=== PATIENT | female | born 1945 | race Asian ===

== ENCOUNTER 2021-05-20 19:38 | Inpatient (IN) | payer MEDICARE, OTHER ==
[~2021-05-20] VITALS: Ht 157.5 cm; Wt 70.3 kg
--- NOTE | 2021-05-20 20:00 | NUR ---
Patient BIB [facility] from [facility] to be medically cleared to be eval by PET TEAM for SI. Pt denies any SI at this moment. Noted to be calm and cooperative. Clear speech, complete sentences. Denies any pain/discomfort.
--- NOTE | 2021-05-20 20:02 | NUR ---
Dr. Wan at bedside, MSE in progress.
[2021-05-20] MEDS ORDERED: CLOP75TA15 PO (20:12)
[2021-05-20] MEDS ORDERED: DULO30CA2 PO (20:12)
[2021-05-20] MEDS ORDERED: ATEN25TA PO (20:12)
[2021-05-20] MEDS ORDERED: RAMI10CA32 PO (20:12)
[2021-05-20] MEDS ORDERED: EZET10TA15 PO (20:12)
[2021-05-20] MEDS ORDERED: ASPI81TA31 PO (20:12)
--- NOTE | 2021-05-20 20:12 | NUR ---
Called Davida from crisis. No answer, left message.
--- NOTE | 2021-05-20 20:57 | NUR ---
Davida from crisis at bedside to eval patient.
--- NOTE | 2021-05-20 21:45 | NUR ---
Gave report to Precila U.
[2021-05-20] MEDS ORDERED: DIPH25CA83 PO (21:53)
[2021-05-20] MEDS ORDERED: CARI1.5C PO (21:53)
[2021-05-20] MEDS ORDERED: LANS30CA56 PO (21:53)
[2021-05-20] MEDS ORDERED: ZINC50TA72 PO (21:53)
[2021-05-20] MEDS ORDERED: LORA-259 PO (21:53)
[2021-05-20] MEDS ORDERED: SITA1TAB2 PO (21:53)
--- NOTE | 2021-05-20 22:08 | NUR ---
Pt. admitted to [facility] , under care of and Kary Ortiz. Dx: psychosis, 5150 hold DTS Belongs List completed
[2021-05-20] MEDS ORDERED: MAG HYDROX/AL HYDROX/SIMETH 30 ML LIQUID UDC PO PRN (22:30)
[2021-05-20] MEDS ORDERED: MAGNESIUM HYDROXIDE 30 ML LIQUID UDC PO PRN (22:30)
[2021-05-20] MEDS ORDERED: CLONIDINE HCL 0.1 MG TABLET PO ONE (22:30)
[2021-05-20] MEDS ORDERED: BLOOD SUGAR DIAGNOSTIC 1 EACH STRIP VI ONE (22:30)
[2021-05-20] MEDS: TEMAZEPAM 7.5 MG CAPSULE PO PRN (23:37)
--- NOTE | 2021-05-21 01:55 | NUR ---
Patient is a 76 yr old female admitted to GPS on a 5150 for danger to self after she according to the hold attempted to overdose by taking 19 tabs of 25mg benadryl. Patient was taken to [facility] then transported to [facility] under the care of Dr. Montanez and Kary Ortiz, ONIEL. Upon admission patient alert, and oriented to place, time, and situation. Patient denied suicidal ideation or intent. Patient appeared to minimize insight about current condition by stating she was unsatisfied with her daughter's current lifestyle. Responses were kept short, and brief while conducting the admitting interview. Patient has a history of hypertension and diabetes mellitus. Blood pressure on admission 190/80 clonidine 0.1mg administered as ordered times one, with effective outcome otherwise vital signs stable. Plan of care initiated, medication reconciliation completed. Will continue to monitor vital signs and Q. 15 mins times 24 hours for safety. Addendum: 05/21/21 at 0215 by WALT BARR RN List of belongings done and secured. Patient received the handbook. Oriented to the unit. Patient also had gomez which was given to supervisor pastry to place in safe.
[2021-05-21] MEDS: PANTOPRAZOLE SODIUM 40 MG TABLET.DR PO SCH (06:59)
[2021-05-21 07:30] VITALS: BP 131/78
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
[2021-05-21 08:12] LABS: BILIRUBIN,TOTAL 0.3 mg/dL (0.2-1.0); CREATININE 1.1 mg/dL (0.6-1.3); POTASSIUM 4.4 mmol/L (3.5-5.1); TOTAL PROTEIN, SERUM 8.2 g/dL (6.4-8.2)
--- NOTE | 2021-05-21 08:31 | NUR ---
Social Work Note/Substance Abuse Intervention: Patient was provided with a brief substance abuse intervention and referred to [facility] ([phone]), [facility] ([phone]), and [facility] ([phone]) for overdose.
[2021-05-21] MEDS: LINAGLIPTIN 5 MG TABLET PO SCH (08:36)
[2021-05-21] MEDS: RAMIPRIL 5 MG CAPSULE PO SCH (08:37)
[2021-05-21] MEDS: CLOPIDOGREL 75 MG TABLET PO SCH (08:37)
[2021-05-21] MEDS: METFORMIN HCL 500 MG TABLET PO SCH ×2 (08:37→17:11)
[2021-05-21] MEDS: EZETIMIBE 10 MG TABLET PO SCH (08:37)
[2021-05-21] MEDS: ASPIRIN 81 MG TAB.CHEW PO SCH (08:37)
[2021-05-21] MEDS: ATENOLOL 25 MG TABLET PO SCH (08:38)
--- NOTE | 2021-05-21 09:39 | NUR ---
GURDEEP Initial Discharge Plan: Patient lives at [address] [place] [address] [place] [address]; ([phone]). Patient would want to return back home upon discharge, she expressed that she lives with a friend. This SW contact patient's daughter Nicholas at ([phone]) and left a detailed voicemail to discuss treatment and discharge plan. GURDEEP will work with the MD and treatment team to coordinate properly.
--- NOTE | 2021-05-21 09:40 | NUR ---
SW Family Contact: This SW contact patient's daughter Del at ([phone]) and left a detailed voicemail to discuss treatment and discharge plan.
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
[2021-05-21] MEDS: ACETAMINOPHEN 325 MG TABLET PO PRN ×2 (13:00→21:01)
--- NOTE | 2021-05-21 14:58 | NUR ---
SW Family Contact: This SW spoke with patient's daughter Nicholas ([phone]) who stated that patient has been unmanageable and has been pushing family away. Daughter expressed that patient doesn't take her medications at home. She shared that patient lives in a guest house located at [address] [place] [address]. Daughter expressed that prior to pt living in the guest house that she rents, she was at [facility]. Daughter expressed if the pt wants to return back to her guest house that she rents she can. SW discussed treatment and discharge plan.
[2021-05-21 16:00] VITALS: BP 121/62
[2021-05-21] MEDS: DULOXETINE 30 MG CAPSULE.DR PO SCH (17:11)
[2021-05-21 20:00] VITALS: BP 150/74
[2021-05-21] MEDS: ARIPIPRAZOLE 5 MG TABLET PO SCH (20:03)
[2021-05-21] MEDS: TEMAZEPAM 7.5 MG CAPSULE PO PRN (21:01)
[2021-05-22] MEDS: PANTOPRAZOLE SODIUM 40 MG TABLET.DR PO SCH (07:00)
[2021-05-22 07:30] VITALS: BP 129/46
[2021-05-22] MEDS: ASPIRIN 81 MG TAB.CHEW PO SCH (11:02)
[2021-05-22] MEDS: CLOPIDOGREL 75 MG TABLET PO SCH (11:02)
[2021-05-22] MEDS: EZETIMIBE 10 MG TABLET PO SCH (11:02)
[2021-05-22] MEDS: METFORMIN HCL 500 MG TABLET PO SCH ×2 (11:02→18:15)
[2021-05-22] MEDS: LINAGLIPTIN 5 MG TABLET PO SCH (11:02)
[2021-05-22] MEDS: RAMIPRIL 5 MG CAPSULE PO SCH (11:04)
[2021-05-22] MEDS: ATENOLOL 25 MG TABLET PO SCH (11:05)
--- NOTE | 2021-05-22 14:52 | NUR ---
GURDEEP Individual Note: SW spoke with patient and discussed discharge plan. Patient stated she does not want to go to a SNF and would like to return home upon discharge.
--- NOTE | 2021-05-22 14:53 | NUR ---
SW Family Contact: This SW spoke with patient's daughter Nicholas ([phone]) who called regarding how her mom is doing currently in the hospital. SW discussed patient's current condition and informed her that patient refused SNF placement and would like to return home.
[2021-05-22 16:57] VITALS: BP 125/52
[2021-05-22] MEDS: DULOXETINE 30 MG CAPSULE.DR PO SCH (18:15)
[2021-05-22 20:12] VITALS: BP 128/42
[2021-05-22] MEDS: ARIPIPRAZOLE 5 MG TABLET PO SCH (20:28)
[2021-05-22] MEDS: TEMAZEPAM 7.5 MG CAPSULE PO PRN (20:32)
[2021-05-22] MEDS: ACETAMINOPHEN 325 MG TABLET PO PRN (20:33)
[2021-05-22] MEDS ORDERED: DEXTROSE 50% 50 ML DISP.SYRIN IV PRN (22:15)
[2021-05-23] MEDS: LORAZEPAM 0.5 MG TABLET PO PRN (01:02)
[2021-05-23] MEDS: BLOOD SUGAR DIAGNOSTIC 1 EACH STRIP VI SCH ×4 (06:08→21:11)
[2021-05-23] MEDS: PANTOPRAZOLE SODIUM 40 MG TABLET.DR PO SCH (06:39)
[2021-05-23 07:41] VITALS: BP 111/53
[2021-05-23] MEDS: CLOPIDOGREL 75 MG TABLET PO SCH (08:16)
[2021-05-23] MEDS: EZETIMIBE 10 MG TABLET PO SCH (08:16)
[2021-05-23] MEDS: ASPIRIN 81 MG TAB.CHEW PO SCH (08:16)
[2021-05-23] MEDS: RAMIPRIL 5 MG CAPSULE PO SCH (08:16)
[2021-05-23] MEDS: METFORMIN HCL 500 MG TABLET PO SCH ×2 (08:16→16:18)
[2021-05-23] MEDS: LINAGLIPTIN 5 MG TABLET PO SCH (08:16)
[2021-05-23] MEDS: ATENOLOL 25 MG TABLET PO SCH (08:16)
[2021-05-23] MEDS: INSULIN REGULAR, HUMAN 300 UNIT/3 ML VIAL SQ PRN ×4 (08:18→21:12)
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
[2021-05-23 16:02] VITALS: BP 130/44
[2021-05-23] MEDS: DULOXETINE 30 MG CAPSULE.DR PO SCH (16:18)
[2021-05-23 19:54] VITALS: BP 111/69
[2021-05-23] MEDS: ARIPIPRAZOLE 5 MG TABLET PO SCH (20:01)
[2021-05-23] MEDS: ATORVASTATIN 40 MG TABLET PO SCH (20:01)
[2021-05-23] MEDS: TEMAZEPAM 7.5 MG CAPSULE PO PRN (21:05)
[2021-05-23] MEDS: ACETAMINOPHEN 325 MG TABLET PO PRN (21:05)
[2021-05-24] MEDS: BLOOD SUGAR DIAGNOSTIC 1 EACH STRIP VI SCH ×5 (06:23→20:46)
[2021-05-24] MEDS: CLOPIDOGREL 75 MG TABLET PO SCH (08:10)
[2021-05-24] MEDS: METFORMIN HCL 500 MG TABLET PO SCH ×2 (08:10→17:16)
[2021-05-24] MEDS: LINAGLIPTIN 5 MG TABLET PO SCH (08:10)
[2021-05-24] MEDS: EZETIMIBE 10 MG TABLET PO SCH (08:10)
[2021-05-24] MEDS: PANTOPRAZOLE SODIUM 40 MG TABLET.DR PO SCH (08:10)
[2021-05-24] MEDS: ASPIRIN 81 MG TAB.CHEW PO SCH (08:10)
[2021-05-24] MEDS: RAMIPRIL 5 MG CAPSULE PO SCH (08:11)
[2021-05-24] MEDS: ATENOLOL 25 MG TABLET PO SCH (08:11)
[2021-05-24] MEDS: INSULIN REGULAR, HUMAN 300 UNIT/3 ML VIAL SQ PRN ×4 (08:12→20:50)
[2021-05-24 08:13] VITALS: BP 132/62
--- NOTE | 2021-05-24 12:58 | NUR ---
Pt.was seen by MICHELLE GARDUNO MD
[2021-05-24 16:44] VITALS: BP 126/51
[2021-05-24] MEDS: DULOXETINE 30 MG CAPSULE.DR PO SCH (17:16)
--- NOTE | 2021-05-24 17:50 | NUR ---
PT. EATING DINNER.NO S/S OF DISTRESS,DENIES ANY PAIN,IN GOOD MOOD.
[2021-05-24 19:57] VITALS: BP 118/53
[2021-05-24] MEDS: ARIPIPRAZOLE 5 MG TABLET PO SCH (20:45)
[2021-05-24] MEDS: ATORVASTATIN 40 MG TABLET PO SCH (20:45)
[2021-05-24] MEDS: TEMAZEPAM 7.5 MG CAPSULE PO PRN (20:54)
[2021-05-25] MEDS: LORAZEPAM 0.5 MG TABLET PO PRN (00:51)
[2021-05-25] MEDS: BLOOD SUGAR DIAGNOSTIC 1 EACH STRIP VI SCH ×4 (06:19→21:42)
[2021-05-25] MEDS: PANTOPRAZOLE SODIUM 40 MG TABLET.DR PO SCH (06:19)
[2021-05-25 07:30] VITALS: BP 140/54
[2021-05-25 07:50] LABS: HEMATOCRIT 36.7 % (31.2-41.9); MEAN CORPUSCULAR HEMOGLOBIN 28.2 uug (24.7-32.8); MEAN CORPUSCULAR VOLUME 88.2 fL (75.5-95.3); PLATELET COUNT (AUTO) 310 K/uL (179-408)
[2021-05-25 08:10] LABS: BILIRUBIN,TOTAL 0.3 mg/dL (0.2-1.0); CREATININE 1.1 mg/dL (0.6-1.3); POTASSIUM 3.7 mmol/L (3.5-5.1); TOTAL PROTEIN, SERUM 7.3 g/dL (6.4-8.2)
[2021-05-25] MEDS: LINAGLIPTIN 5 MG TABLET PO SCH (08:35)
[2021-05-25] MEDS: METFORMIN HCL 500 MG TABLET PO SCH ×2 (08:35→17:15)
[2021-05-25] MEDS: ASPIRIN 81 MG TAB.CHEW PO SCH (08:35)
[2021-05-25] MEDS: CLOPIDOGREL 75 MG TABLET PO SCH (08:36)
[2021-05-25] MEDS: EZETIMIBE 10 MG TABLET PO SCH (08:38)
--- NOTE | 2021-05-25 09:09 | NUR ---
SW Note: This SW contacted [facility]'s department requesting to speak to deputy Redmond ([phone]) and this SW spoke with officer Dougie who stated is on the field and will contact this SW. Dougie stated either deputy Redmond or Jean Pierre will contact this SW.
[2021-05-25] MEDS: ATENOLOL 25 MG TABLET PO SCH (09:52)
[2021-05-25] MEDS: RAMIPRIL 5 MG CAPSULE PO SCH (09:53)
--- NOTE | 2021-05-25 11:22 | NUR ---
SW SNF Referral: This SW sent clinicals to [facility] for placement option.
[2021-05-25] MEDS: INSULIN REGULAR, HUMAN 300 UNIT/3 ML VIAL SQ PRN ×3 (11:35→21:43)
--- NOTE | 2021-05-25 12:20 | NUR ---
SNF Contact: This SW received a call from Wagner guzman from [facility] who stated pt is accepted.
[2021-05-25 15:23] VITALS: BP 140/51
[2021-05-25] MEDS: DULOXETINE 30 MG CAPSULE.DR PO SCH (17:15)
[2021-05-25] MEDS: ARIPIPRAZOLE 5 MG TABLET PO SCH (17:15)
[2021-05-25 20:01] VITALS: BP 162/70
[2021-05-25] MEDS: ATORVASTATIN 40 MG TABLET PO SCH (21:41)
[2021-05-25] MEDS: TEMAZEPAM 7.5 MG CAPSULE PO PRN (21:41)
[2021-05-26] MEDS: BLOOD SUGAR DIAGNOSTIC 1 EACH STRIP VI SCH ×4 (06:22→20:21)
[2021-05-26] MEDS: PANTOPRAZOLE SODIUM 40 MG TABLET.DR PO SCH (06:22)
[2021-05-26 07:30] VITALS: BP 117/46
[2021-05-26] MEDS: ASPIRIN 81 MG TAB.CHEW PO SCH (08:30)
[2021-05-26] MEDS: ARIPIPRAZOLE 5 MG TABLET PO SCH ×2 (08:31→17:02)
[2021-05-26] MEDS: LINAGLIPTIN 5 MG TABLET PO SCH (08:32)
[2021-05-26] MEDS: CLOPIDOGREL 75 MG TABLET PO SCH (08:32)
[2021-05-26] MEDS: RAMIPRIL 5 MG CAPSULE PO SCH (08:32)
[2021-05-26] MEDS: ATENOLOL 25 MG TABLET PO SCH (08:33)
[2021-05-26] MEDS: METFORMIN HCL 500 MG TABLET PO SCH ×2 (08:34→17:02)
[2021-05-26] MEDS: EZETIMIBE 10 MG TABLET PO SCH (08:36)
--- NOTE | 2021-05-26 09:21 | NUR ---
SW Family Contact: This SW spoke with patient's daughter Nicholas ([phone]) who called regarding updated discharge plan. She stated that the Patrica visited the home.
[2021-05-26] MEDS: INSULIN REGULAR, HUMAN 300 UNIT/3 ML VIAL SQ PRN ×2 (11:24→20:40)
--- NOTE | 2021-05-26 11:32 | NUR ---
GURDEEP PC Hearing: Patient had 5250 probable cause hearing today and it was upheld for grave disability.
[2021-05-26] MEDS ORDERED: LOPERAMIDE HCL 2 MG CAPSULE PO PRN (15:00)
[2021-05-26 15:30] VITALS: BP 101/68
[2021-05-26] MEDS: DULOXETINE 30 MG CAPSULE.DR PO SCH (17:02)
[2021-05-26] MEDS: ATORVASTATIN 40 MG TABLET PO SCH (20:11)
[2021-05-26 20:13] VITALS: BP 124/58
[2021-05-26] MEDS: TEMAZEPAM 7.5 MG CAPSULE PO PRN (20:40)
[2021-05-26] MEDS: ACETAMINOPHEN 325 MG TABLET PO PRN (20:40)
--- NOTE | 2021-05-26 23:16 | NUR ---
PATIENT RECEIVED IN ROOM AWAKE. ALERT/ORIENTED X3. PATIENT IS,CALM, COOPERATIVE AND PLEASANT UPON APPROACH.SELF CARE,BRP AND AMBULATORY.COMPLIANT WITH MEDS AND CARE.PRN MEDICATION WAS GIVEN FOR SLEEP WAS GIVEN. PATIENT DENIES PAIN/SI/HI. NO ACUTE DISTRESS NOTED. SAFE ENVIRONMENT PROVIDED, FREQUENT ROUNDING, CLUTTER FREE ENVIRONMENT. BED IN LOWEST POSITION, BED LOCKED AND BED ALARM WHILE IN BED.
[2021-05-27] MEDS: PANTOPRAZOLE SODIUM 40 MG TABLET.DR PO SCH (06:36)
[2021-05-27] MEDS: BLOOD SUGAR DIAGNOSTIC 1 EACH STRIP VI SCH ×4 (06:40→20:27)
[2021-05-27 07:30] VITALS: BP 131/46
[2021-05-27] MEDS: ASPIRIN 81 MG TAB.CHEW PO SCH (08:29)
[2021-05-27] MEDS: EZETIMIBE 10 MG TABLET PO SCH (08:30)
[2021-05-27] MEDS: LINAGLIPTIN 5 MG TABLET PO SCH (08:30)
[2021-05-27] MEDS: CLOPIDOGREL 75 MG TABLET PO SCH (08:30)
[2021-05-27] MEDS: METFORMIN HCL 500 MG TABLET PO SCH ×2 (08:30→16:50)
[2021-05-27] MEDS: ARIPIPRAZOLE 5 MG TABLET PO SCH ×2 (08:30→16:50)
[2021-05-27] MEDS: ATENOLOL 25 MG TABLET PO SCH (08:32)
[2021-05-27] MEDS: RAMIPRIL 5 MG CAPSULE PO SCH (08:32)
[2021-05-27] MEDS: INSULIN REGULAR, HUMAN 300 UNIT/3 ML VIAL SQ PRN ×2 (12:07→16:57)
--- NOTE | 2021-05-27 13:19 | NUR ---
SW Individual Therapy: caseworker intake met with patient for brief counseling and assessed for patient's presenting problem depressed mood. Patient appears to be sad and tearful while this SW was conducting therapy. Patient expressed that she is "alone" and that she has no family. She expressed that she does not have a good relationship with her daughter. SW actively listened and provided emotional support.
[2021-05-27 16:00] VITALS: BP 137/54
[2021-05-27] MEDS: DULOXETINE 30 MG CAPSULE.DR PO SCH (16:50)
[2021-05-27] MEDS: ATORVASTATIN 40 MG TABLET PO SCH (20:08)
[2021-05-27 20:15] VITALS: BP 138/61
[2021-05-27] MEDS: TEMAZEPAM 7.5 MG CAPSULE PO PRN (20:41)
[2021-05-27] MEDS: ACETAMINOPHEN 325 MG TABLET PO PRN (20:41)
[2021-05-28] MEDS: PANTOPRAZOLE SODIUM 40 MG TABLET.DR PO SCH (06:15)
[2021-05-28] MEDS: BLOOD SUGAR DIAGNOSTIC 1 EACH STRIP VI SCH ×4 (06:19→20:10)
[2021-05-28 07:30] VITALS: BP 138/44
[2021-05-28] MEDS: INSULIN REGULAR, HUMAN 300 UNIT/3 ML VIAL SQ PRN ×2 (08:10→12:07)
[2021-05-28] MEDS: CLOPIDOGREL 75 MG TABLET PO SCH (08:43)
[2021-05-28] MEDS: ARIPIPRAZOLE 5 MG TABLET PO SCH ×2 (08:43→16:47)
[2021-05-28] MEDS: LINAGLIPTIN 5 MG TABLET PO SCH (08:44)
[2021-05-28] MEDS: METFORMIN HCL 500 MG TABLET PO SCH ×2 (08:44→16:48)
[2021-05-28] MEDS: RAMIPRIL 5 MG CAPSULE PO SCH (08:45)
[2021-05-28] MEDS: ASPIRIN 81 MG TAB.CHEW PO SCH (08:45)
[2021-05-28] MEDS: EZETIMIBE 10 MG TABLET PO SCH (08:46)
[2021-05-28] MEDS: ATENOLOL 25 MG TABLET PO SCH (08:46)
--- NOTE | 2021-05-28 11:41 | NUR ---
SW Family Contact: This SW spoke with patient's daughter Nicholas ([phone]) and stated pt is accepted at [facility] and daughter was agreeable of pt going here. Daughter informed this SW that she is taking care of pt's rent at the guest house.
[2021-05-28 15:56] VITALS: BP 128/62
[2021-05-28] MEDS: DULOXETINE 30 MG CAPSULE.DR PO SCH (16:47)
--- NOTE | 2021-05-28 18:12 | NUR ---
Gps/Ski Edge Painter- Had been cooperative with staff providing her care, had been in and out of her group activity , denies pain or any discomfort. Patient requesting sleeping medications be admnistered earlier that usual, informed patient sleeping medications are given at bedsitime , not at dinner time.
[2021-05-28 20:00] VITALS: BP 138/61
[2021-05-28] MEDS: ATORVASTATIN 40 MG TABLET PO SCH (20:04)
[2021-05-28] MEDS: ACETAMINOPHEN 325 MG TABLET PO PRN (20:05)
[2021-05-28] MEDS: TEMAZEPAM 7.5 MG CAPSULE PO PRN (20:05)
[2021-05-29] MEDS: PANTOPRAZOLE SODIUM 40 MG TABLET.DR PO SCH (06:23)
[2021-05-29] MEDS: BLOOD SUGAR DIAGNOSTIC 1 EACH STRIP VI SCH ×4 (06:27→20:35)
[2021-05-29 07:30] VITALS: BP 127/49
[2021-05-29] MEDS: LINAGLIPTIN 5 MG TABLET PO SCH (08:54)
[2021-05-29] MEDS: EZETIMIBE 10 MG TABLET PO SCH (08:54)
[2021-05-29] MEDS: METFORMIN HCL 500 MG TABLET PO SCH ×2 (08:54→17:00)
[2021-05-29] MEDS: CLOPIDOGREL 75 MG TABLET PO SCH (08:54)
[2021-05-29] MEDS: ASPIRIN 81 MG TAB.CHEW PO SCH (08:54)
[2021-05-29] MEDS: ATENOLOL 25 MG TABLET PO SCH (08:55)
[2021-05-29] MEDS: RAMIPRIL 5 MG CAPSULE PO SCH (08:55)
[2021-05-29] MEDS: ARIPIPRAZOLE 5 MG TABLET PO SCH ×2 (09:00→17:00)
[2021-05-29] MEDS: INSULIN REGULAR, HUMAN 300 UNIT/3 ML VIAL SQ PRN ×3 (11:56→20:36)
[2021-05-29] MEDS: DULOXETINE 30 MG CAPSULE.DR PO SCH (17:00)
[2021-05-29 17:16] VITALS: BP 127/56
[2021-05-29 19:59] VITALS: BP 139/63
[2021-05-29] MEDS: ATORVASTATIN 40 MG TABLET PO SCH (20:06)
[2021-05-29] MEDS: TEMAZEPAM 7.5 MG CAPSULE PO PRN (21:10)
[2021-05-29] MEDS: ACETAMINOPHEN 325 MG TABLET PO PRN (21:15)
--- NOTE | 2021-05-29 21:18 | NUR ---
GPS: PATIENT C/O GEN: PAIN. TYLENOL 650 MG PO GIVEN.
[2021-05-30] MEDS: BLOOD SUGAR DIAGNOSTIC 1 EACH STRIP VI SCH ×4 (06:10→20:35)
[2021-05-30] MEDS: PANTOPRAZOLE SODIUM 40 MG TABLET.DR PO SCH (06:18)
--- NOTE | 2021-05-30 06:35 | NUR ---
Gps: Remain calm and cooperative. took restoril 7.5 mg po for sleep. and tylnol 650 mg po for gen: pain both meds effective. Denies pain or any discomfort at this time. compliant with am meds and blood sugar check. slept 7.30 hrs through the night.
[2021-05-30 07:47] VITALS: BP 115/57
[2021-05-30] MEDS: EZETIMIBE 10 MG TABLET PO SCH (08:31)
[2021-05-30] MEDS: ASPIRIN 81 MG TAB.CHEW PO SCH (08:31)
[2021-05-30] MEDS: ARIPIPRAZOLE 5 MG TABLET PO SCH ×2 (08:32→16:44)
[2021-05-30] MEDS: METFORMIN HCL 500 MG TABLET PO SCH ×2 (08:32→16:44)
[2021-05-30] MEDS: LINAGLIPTIN 5 MG TABLET PO SCH (08:32)
[2021-05-30] MEDS: CLOPIDOGREL 75 MG TABLET PO SCH (08:32)
[2021-05-30] MEDS: ATENOLOL 25 MG TABLET PO SCH (08:33)
[2021-05-30] MEDS: RAMIPRIL 5 MG CAPSULE PO SCH (08:33)
[2021-05-30] MEDS: INSULIN REGULAR, HUMAN 300 UNIT/3 ML VIAL SQ PRN ×2 (08:37→11:55)
[2021-05-30] MEDS: DULOXETINE 30 MG CAPSULE.DR PO SCH (16:44)
[2021-05-30 16:57] VITALS: BP 111/59
[2021-05-30 19:56] VITALS: BP 124/66
[2021-05-30] MEDS: TEMAZEPAM 7.5 MG CAPSULE PO PRN (20:30)
[2021-05-30] MEDS: ATORVASTATIN 40 MG TABLET PO SCH (20:30)
[2021-05-30] MEDS: ACETAMINOPHEN 325 MG TABLET PO PRN (20:35)
[2021-05-31] MEDS: PANTOPRAZOLE SODIUM 40 MG TABLET.DR PO SCH (06:16)
[2021-05-31] MEDS: BLOOD SUGAR DIAGNOSTIC 1 EACH STRIP VI SCH ×4 (06:31→20:37)
[2021-05-31 08:14] VITALS: BP 119/54
[2021-05-31] MEDS: METFORMIN HCL 500 MG TABLET PO SCH ×2 (08:34→16:36)
[2021-05-31] MEDS: ATENOLOL 25 MG TABLET PO SCH (08:34)
[2021-05-31] MEDS: ASPIRIN 81 MG TAB.CHEW PO SCH (08:34)
[2021-05-31] MEDS: RAMIPRIL 5 MG CAPSULE PO SCH (08:34)
[2021-05-31] MEDS: ARIPIPRAZOLE 5 MG TABLET PO SCH ×2 (08:34→16:36)
[2021-05-31] MEDS: CLOPIDOGREL 75 MG TABLET PO SCH (08:35)
[2021-05-31] MEDS: EZETIMIBE 10 MG TABLET PO SCH (08:35)
[2021-05-31] MEDS: LINAGLIPTIN 5 MG TABLET PO SCH (08:35)
[2021-05-31] MEDS: INSULIN REGULAR, HUMAN 300 UNIT/3 ML VIAL SQ PRN (12:02)
[2021-05-31 16:18] VITALS: BP 144/56
[2021-05-31] MEDS: DULOXETINE 30 MG CAPSULE.DR PO SCH (16:36)
[2021-05-31 19:48] VITALS: BP 158/72
[2021-05-31] MEDS: ATORVASTATIN 40 MG TABLET PO SCH (20:28)
[2021-05-31] MEDS: ACETAMINOPHEN 325 MG TABLET PO PRN (20:38)
[2021-05-31] MEDS: TEMAZEPAM 7.5 MG CAPSULE PO PRN (21:23)
[2021-06-01] MEDS: PANTOPRAZOLE SODIUM 40 MG TABLET.DR PO SCH (06:03)
--- NOTE | 2021-06-01 06:26 | NUR ---
Received Pt pacing the hallways, Pt is quiet, guarded, and appears internally preoccupied. Pt is A+O x3 with poor insight into her situation. Pt gives minimal disclosure, and states that she is "fine". Pt minimizes the overdose on medications that brought her to the hospital stating, "I just took a couple extra pills to help me sleep". Pt denies any current or past suicidal thoughts, ideations, or plans and verbally contracts for safety. VS stable, c/o generalized body pain due to arthritis. Tylenol 650mg administered with good effect.
[2021-06-01] MEDS: BLOOD SUGAR DIAGNOSTIC 1 EACH STRIP VI SCH ×4 (06:44→20:14)
[2021-06-01 07:30] VITALS: BP 132/68
[2021-06-01] MEDS: ARIPIPRAZOLE 5 MG TABLET PO SCH ×2 (08:33→16:43)
[2021-06-01] MEDS: RAMIPRIL 5 MG CAPSULE PO SCH (08:34)
[2021-06-01] MEDS: ASPIRIN 81 MG TAB.CHEW PO SCH (08:34)
[2021-06-01] MEDS: EZETIMIBE 10 MG TABLET PO SCH (08:34)
[2021-06-01] MEDS: CLOPIDOGREL 75 MG TABLET PO SCH (08:34)
[2021-06-01] MEDS: METFORMIN HCL 500 MG TABLET PO SCH ×2 (08:34→16:43)
[2021-06-01] MEDS: LINAGLIPTIN 5 MG TABLET PO SCH (08:34)
[2021-06-01] MEDS: ATENOLOL 25 MG TABLET PO SCH (08:39)
[2021-06-01] MEDS: INSULIN REGULAR, HUMAN 300 UNIT/3 ML VIAL SQ PRN (11:46)
[2021-06-01 15:16] VITALS: BP 153/51
[2021-06-01] MEDS: DULOXETINE 30 MG CAPSULE.DR PO SCH (16:43)
[2021-06-01 19:59] VITALS: BP 155/75
[2021-06-01] MEDS: TEMAZEPAM 7.5 MG CAPSULE PO PRN (20:08)
[2021-06-01] MEDS: ACETAMINOPHEN 325 MG TABLET PO PRN (20:08)
[2021-06-01] MEDS: ATORVASTATIN 40 MG TABLET PO SCH (20:08)
[2021-06-02] MEDS: BLOOD SUGAR DIAGNOSTIC 1 EACH STRIP VI SCH ×4 (06:53→20:19)
[2021-06-02] MEDS: PANTOPRAZOLE SODIUM 40 MG TABLET.DR PO SCH (06:53)
[2021-06-02 07:30] VITALS: BP 144/56
[2021-06-02] MEDS: ARIPIPRAZOLE 5 MG TABLET PO SCH ×2 (08:41→16:34)
[2021-06-02] MEDS: CLOPIDOGREL 75 MG TABLET PO SCH (08:42)
[2021-06-02] MEDS: ASPIRIN 81 MG TAB.CHEW PO SCH (08:42)
[2021-06-02] MEDS: EZETIMIBE 10 MG TABLET PO SCH (08:42)
[2021-06-02] MEDS: LINAGLIPTIN 5 MG TABLET PO SCH (08:43)
[2021-06-02] MEDS: RAMIPRIL 5 MG CAPSULE PO SCH (08:43)
[2021-06-02] MEDS: METFORMIN HCL 500 MG TABLET PO SCH ×2 (08:43→16:34)
[2021-06-02] MEDS: ATENOLOL 25 MG TABLET PO SCH (08:43)
--- NOTE | 2021-06-02 14:58 | NUR ---
SW Note: SW spoke with pt in regards to pt's placement and that she is accepted at [facility]. Pt expressed that she has been here before and is willing to go here.
[2021-06-02 15:25] VITALS: BP 123/59
[2021-06-02] MEDS: INSULIN REGULAR, HUMAN 300 UNIT/3 ML VIAL SQ PRN (16:33)
[2021-06-02] MEDS: DULOXETINE 30 MG CAPSULE.DR PO SCH (16:34)
[2021-06-02 20:00] VITALS: BP 141/75
--- NOTE | 2021-06-02 20:00 | NUR ---
RECEIVED PATIENT IN THE HALLWAY. SHE IS NOTED A/O X 3 ABLE TO AMBULATE WITH STEADY GAIT AND ABLE TO MAKE HER NEEDS KNOWN. SHE IS NOTED WITH LOW MOOD, AFFECT IS BLUNTED, SHE IS NOTED PREOCCUPIED. UPON INTERVIEW, SHE STATED THAT SHE IS NOT HAPPY WITH HER INCOM[facility]. SHE WOULD LIKE TO GO BACK HOME. PATIENT WAS REASSURED, AND REDIRECTED. SHE DENIED SI/HI/VA/AH. SHE IS ABLE TO VERBALLY CFS. V/S STABLE AT THIS TIME. SHE WAS GIVEN PO FLUIDS AND SNACKS. SHE IS REASSURED FOR HER SAFETY. SAFETY AND FALL PRECAUTION IN PLACE. WILL CONTINUE TO MONITOR.
[2021-06-02] MEDS: ATORVASTATIN 40 MG TABLET PO SCH (20:19)
[2021-06-02] MEDS: ACETAMINOPHEN 325 MG TABLET PO PRN (21:59)
[2021-06-02] MEDS: TEMAZEPAM 7.5 MG CAPSULE PO PRN (22:00)
[2021-06-03] MEDS: PANTOPRAZOLE SODIUM 40 MG TABLET.DR PO SCH (07:22)
[2021-06-03] MEDS: BLOOD SUGAR DIAGNOSTIC 1 EACH STRIP VI SCH ×4 (07:23→20:38)
[2021-06-03 07:30] VITALS: BP 168/69
--- NOTE | 2021-06-03 07:30 | NUR ---
Received report from ELIESER Simpson. All questions, comments, and concerns were addressed. Received patient awake resting quietly in her assigned bed. Bed is in low and locked position.
--- NOTE | 2021-06-03 08:03 | NUR ---
GURDEEP DISCHARGE NOTE: Patient will be discharged to [facility] [address] [facility], [place] [address] ([phone]) via ambulance at 1PM. Spoke with Alis, Admin Coordinator at the facility who states they are ready to accept the patient today. Patient is aware and agreeable with discharge plans. Patients daughter Nicholas ([phone]) is aware and agreeable. Patient is alert and oriented x3, is unable to plan for self-care at this time, however, is willing to accept care at [facility]. Patient denies any suicidal or homicidal ideation. Patient will follow-up at the facility with Dr. Montanez (psychiatrist) and (Autism Teacher) Dr. Jose Juan Moreau. Patient presents with euthymic mood and congruent affect. Addendum: 06/04/21 at 0756 by GURDEEP GOVEA Discharge changed for 06/04 due to patient's BP high on 06/03. Per nurses, transportation is scheduled for 8AM on 06/04.
[2021-06-03] MEDS: ASPIRIN 81 MG TAB.CHEW PO SCH (08:51)
[2021-06-03] MEDS: INSULIN REGULAR, HUMAN 300 UNIT/3 ML VIAL SQ PRN ×3 (08:51→16:39)
[2021-06-03] MEDS: LINAGLIPTIN 5 MG TABLET PO SCH (08:52)
[2021-06-03] MEDS: CLOPIDOGREL 75 MG TABLET PO SCH (08:52)
[2021-06-03] MEDS: EZETIMIBE 10 MG TABLET PO SCH (08:52)
[2021-06-03] MEDS: METFORMIN HCL 500 MG TABLET PO SCH ×2 (08:52→16:40)
[2021-06-03] MEDS: RAMIPRIL 5 MG CAPSULE PO SCH (08:52)
[2021-06-03] MEDS: ARIPIPRAZOLE 5 MG TABLET PO SCH ×3 (08:52→16:40)
[2021-06-03] MEDS: ATENOLOL 25 MG TABLET PO SCH (08:56)
--- NOTE | 2021-06-03 10:58 | NUR ---
GURDEEP Family Contact: GURDEEP Rios and GURDEEP Valdes spoke with patient's daughter Nicholas ([phone]) who called regarding patient's discharge plan. Nicholas was shouting, rambling and accusatory of her not known what is going on. Keisha and Blanca have both been in constant communication with Nicholas throughout the patient's hospitalization. Nicholas has known and requested about the patient going to [facility]. Nicholas stated she did not know about the [facility]'s being involved in the patient's case when in fact Nicholas has contacted Blanca MACKENZIE on 05/26/21 informing of José Miguel's visit. Nicholas was twisting words around and accusatory of staff not helping her. Keisha explained the process of the patient's discharge plan again and Nicholas continue to state she does not know anything. ELIESER Crain was present in the room during this phone conversation. Nicholas stated she is the DPOA however now she states that she is unsure if its still active, she has failed to provide the documentation. GURDEEP Rios informed Nicholas that she can be in contact and communication with [facility] once patient admits there today. Nicholas demanding a phone call from the psychiatrist because "she does not know what is going on". GURDEEP informed Dr. Montanez of this request and situation.
--- NOTE | 2021-06-03 15:56 | NUR ---
At time of pickup to be discharged, patient's BP 196/79, pulse 69. Patient denies s/s of hypertension. she states she "feels fine". Patient unable to be discharged at this time. Left message at [employer] for Dr. Lopez. Waiting call back. Addendum: 06/03/21 at 1730 by MIYA FLORES RN Orders received for Hydralazine 25 mg PO once.
[2021-06-03 16:14] VITALS: BP 196/79
[2021-06-03] MEDS: DULOXETINE 30 MG CAPSULE.DR PO SCH (16:40)
[2021-06-03] MEDS ORDERED: hydrALAZINE HCL 25 MG TABLET PO ONE (17:00)
[2021-06-03] MEDS: ATORVASTATIN 40 MG TABLET PO SCH (20:29)
[2021-06-03] MEDS: CLONIDINE HCL 0.1 MG TABLET PO ONE ×2 (20:37→20:58)
--- NOTE | 2021-06-03 21:12 | NUR ---
[facility] halfway facility can not accept the patient at this time due to patient arriving late. Spoke to Kb from [facility]; changed transportation time to 8 am on 06/04/2021. Called patients daughter and left a voicemail. aware.
[2021-06-03] MEDS: ACETAMINOPHEN 325 MG TABLET PO PRN (21:17)
[2021-06-03] MEDS: TEMAZEPAM 7.5 MG CAPSULE PO PRN (21:18)
[2021-06-03 23:14] VITALS: BP 111/53
--- NOTE | 2021-06-04 06:12 | NUR ---
Patient slept 8 hours. Patient has been med compliant. Pleasant upon approach, semi fair insight and semi fair judgement.
[2021-06-04] MEDS: PANTOPRAZOLE SODIUM 40 MG TABLET.DR PO SCH (06:28)
[2021-06-04] MEDS: BLOOD SUGAR DIAGNOSTIC 1 EACH STRIP VI SCH (06:31)
[2021-06-04 07:30] VITALS: BP 118/65
--- NOTE | 2021-06-04 09:17 | NUR ---
PICKED UP BY [facility]. VALUABLES AND BELONGINGS RECONCILED. NO C/O DISTRESS NOTED VSS
== END 2021-06-04 09:23 | DRG 885 ==
LOC: ER 19:38 → GPS 21:49
PROVIDERS: ADMIT Psychiatry & Neurology Psychosomatic Medicine; ATTEND Nurse Practitioner Acute Care
DX: F25.1 Schizoaffective disorder, depressive type (principal); F01.50 Vascular dementia, unspecified severity, without behavioral disturbance, psychotic disturbance, mood disturbance, and anxiety; E11.65 Type 2 diabetes mellitus with hyperglycemia; F32.9 Major depressive disorder, single episode, unspecified; E78.5 Hyperlipidemia, unspecified; I10 Essential (primary) hypertension; Z20.822 Contact with and (suspected) exposure to COVID-19; K21.9 Gastro-esophageal reflux disease without esophagitis; Z79.02 Long term (current) use of antithrombotics/antiplatelets; G47.00 Insomnia, unspecified; Z79.899 Other long term (current) drug therapy; R19.7 Diarrhea, unspecified
CPT/HCPCS: 36415; 85025; 97161; A4663; J1815